=== PATIENT | female | born 1995 | race African-American/Black ===

== ENCOUNTER 2017-02-19 18:51 | Observation (INO) | payer MEDICAID, MEDICARE ==
[~2017-02-19] VITALS: Ht 167.6 cm; Wt 65.3 kg
[2017-02-19 19:50] LABS: CLARITY URINE CLEAR (CLEAR); COLOR URINE YELLOW (YELLOW); GLUCOSE URINE NEGATIVE (NEGATIVE); KETONES URINE NEGATIVE (NEGATIVE); LEUKOCYTE ESTERASE URINE NEGATIVE (NEGATIVE); NITRITE URINE NEGATIVE (NEGATIVE); OCCULT BLOOD URINE NEGATIVE (NEGATIVE); PROTEIN URINE NEGATIVE (NEGATIVE); SPECIFIC GRAVITY URINE 1.011 (1.005-1.030); UROBILINOGEN URINE 0.2 E.U./dL (0.2-1.0)
== END 2017-02-19 20:45 | disposition home or self-care (01) ==
LOC: L&D 18:51
PROVIDERS: ADMIT Specialist; ATTEND Specialist
DX: O26.893 Other specified pregnancy related conditions, third trimester (principal); R10.2 Pelvic and perineal pain; Z3A.36 36 weeks gestation of pregnancy
CPT/HCPCS: 81003; G0378; 99281

== ENCOUNTER 2017-03-11 14:45 | Emergency (ER) | payer MEDICARE ==
[~2017-03-11] VITALS: Ht 162.6 cm; Wt 60.0 kg
[2017-03-11] MEDS ORDERED: SODIUM CHLORIDE 0.9% 1,000 ML IV ONE (20:33)
[2017-03-11] MEDS ORDERED: METOCLOPRAMIDE HCL 10MG/2ML VIAL IV ONE (20:45)
[2017-03-11] MEDS ORDERED: KETOROLAC 30MG/ML VIAL IV ONE (20:45)
[2017-03-11] MEDS ORDERED: ACETAMINOPHEN 325MG TABLET PO ONE (21:15)
[2017-03-11 21:21] LABS: HCG SCREEN POSITIVE
[2017-03-11 22:26] VITALS: BP 119/67
== END 2017-03-11 23:35 | disposition home or self-care (01) ==
LOC: ER 14:52
DX: M54.2 Cervicalgia (principal); R51 Headache; Z98.890 Other specified postprocedural states
CPT/HCPCS: 84703; 96374; 99284; J2765; J7030; Z7610; L0172

== ENCOUNTER 2022-01-02 20:39 | Emergency (ER) | payer MEDICARE, OTHER ==
[~2022-01-02] VITALS: Ht 157.5 cm; Wt 47.0 kg
[2022-01-02] MEDS ORDERED: SODIUM CHLORIDE 0.9% 1,000 ML IV ONE (22:30)
[2022-01-02 23:35] LABS: BASOPHILS % 0.1 % (0.0-2.0); EOSINOPHILS % 0.1 % (0.0-5.0); HEMATOCRIT. 26.2 % (36.0-48.0); HEMOGLOBIN. 8.7 g/dL (12.0-16.0); LYMPHOCYTES % 10.1 % (20.0-50.0); MEAN CORPUSCULAR HEMOGLOBIN 28.8 pg (28.0-32.0); MEAN CORPUSCULAR VOLUME 86.9 fL (81.0-99.0); MEAN PLATELET VOLUME 9.5 fl (7.4-10.4); MONOCYTES % 4.1 % (2.0-8.0); NEUTROPHILS % 85.6 % (40.0-76.0); PLATELET 173 x1000/uL (130-400); RED BLOOD CELL COUNT 3.02 mill/uL (4.2-5.4); RED CELL DISTRIBUTION WIDTH 17.4 % (11.6-14.6)
[2022-01-02 23:38] LABS: CHLORIDE 109 mEq/L (98-107)
[2022-01-02 23:40] LABS: PROTHROMBIN TIME 10.6 sec (9.6-11.0)
[2022-01-02 23:59] LABS: B-HCG QUANTITATIVE 77311 mIU/mL (<3); ETHANOL BLOOD < 10 mg/dL
[2022-01-03 00:07] LABS: HCG SCREEN POSITIVE
[2022-01-03] MEDS ORDERED: ONDANSETRON HCL 4MG/2ML INJ IV ONE (00:15)
[2022-01-03] MEDS ORDERED: MORPHINE SULFATE 2 MG/ML CPJ (NOT FOR IM USE) IV ONE (00:15)
[2022-01-03] MEDS ORDERED: OXYTOCIN 30 UNITS/500ML NS PMX 500 ML IV ONE (01:15)
[2022-01-03] MEDS ORDERED: OXYTOCIN 30 UNITS/500ML NS PMX 500 ML IV SCH (01:15)
[2022-01-03] MEDS ORDERED: DEXT 5%/LR + PITOCIN 20UNITS/L 1,000 ML IV SCH (01:15)
[2022-01-03] MEDS ORDERED: TOPUD MT (03:12)
[2022-01-03 04:04] VITALS: BP 100/58
== END 2022-01-03 04:10 | disposition home or self-care (01) ==
LOC: ER 20:39
DX: O03.30 Unspecified complication following incomplete spontaneous abortion (principal); F17.210 Nicotine dependence, cigarettes, uncomplicated
CPT/HCPCS: 36415; 76801; 80053; 80320; 84702; 84703; 85025; 85610; 86850; 86900; 86901; 88305; 96361; 96374; 96375; 99291; J2270; J2405; J7030; G0480; J2590

== ENCOUNTER 2022-03-17 12:49 | Emergency (ER) | payer OTHER ==
[~2022-03-17] VITALS: Ht 167.6 cm; Wt 60.0 kg
[~2022-03-17 12:49] MED LIST: TOPUD MT
[2022-03-17 13:09] VITALS: BP 107/65
[2022-03-17] MEDS ORDERED: ACETAMINOPHEN 325MG TABLET PO ONE (15:30)
[2022-03-17] MEDS ORDERED: ALBU6.7H9 INH (15:40)
[2022-03-17] MEDS ORDERED: ACET-2708 MT (15:40)
== END 2022-03-17 16:07 | disposition home or self-care (01) ==
LOC: ER 13:02
DX: B34.9 Viral infection, unspecified (principal); R05.9 Cough, unspecified; S39.011A Strain of muscle, fascia and tendon of abdomen, initial encounter; X58.XXXA Exposure to other specified factors, initial encounter; Y93.9 Activity, unspecified; Y92.9 Unspecified place or not applicable; Z20.822 Contact with and (suspected) exposure to COVID-19
CPT/HCPCS: 81025; 87426; 99283; C9803

== ENCOUNTER 2023-01-19 07:29 | Emergency (ER) | payer OTHER ==
[~2023-01-19] VITALS: Ht 167.6 cm; Wt 60.0 kg
[~2023-01-19 07:29] MED LIST changes: +ACET-2708 MT; +ALBU6.7H3 INH
[2023-01-19 07:37] VITALS: O2SAT 100
[2023-01-19] MEDS ORDERED: ERYT1OIN6 EACHEYE (09:24)
[2023-01-19] MEDS ORDERED: AMOX1TAB16 MT (09:24)
[2023-01-19 09:45] VITALS: BP 124/87; PULSE 62; RESP 20; TEMP 98.2
== END 2023-01-19 09:47 | disposition home or self-care (01) ==
LOC: ER 07:42
DX: L03.213 Periorbital cellulitis (principal); F12.10 Cannabis abuse, uncomplicated; Z79.899 Other long term (current) drug therapy
CPT/HCPCS: 99283